=== PATIENT | male | born 1940 | race Caucasian/White ===

== ENCOUNTER → 2016-11-08 | Day surgery (SDC) | payer OTHER, BC ==
--- NOTE | 2016-11-09 15:41 | PATH ---
Surgical Pathology Report Patient Name: ALIZE HARDY [facility]. Rec. #: [id number] /Age/Gender: 1940 (Age: 76) / M Account: [id number] Location: Taken: 11/08/2016 Received: 11/08/2016 Reported: 11/09/2016 Physicians: Missy Israel M.D. Specimen(s) Received RIGHT BREAST RETROAREOLAR REGION CORE BIOPSY Clinical History Rule out intraductal papilloma Final Diagnosis BREAST, RIGHT, RETROAREOLAR REGION, CORE BIOPSY: INTRADUCTAL PAPILLOMA. Electronically Signed Jessica Berrios M.D. Gross Description Received in formalin, labeled right breast retroareolar region are four cores of light stover and yellow stover soft tissue ranging from 1-1.7 cm in length with a diameter up to 0.2 cm. Entirely submitted two cassettes. Time to formalin fixation: 2 minutes Formalin fixation time: approximately 6 hours
== END | disposition home or self-care (01) ==
LOC: FRADUS-SUR 13:42
PROVIDERS: ATTEND Internal Medicine
PROC: 0HBT3ZX Excision of Right Breast, Percutaneous Approach, Diagnostic (ICD-10-PCS; principal; 2016-11-08)
DX: N63 Unspecified lump in breast (principal); D24.1 Benign neoplasm of right breast
CPT/HCPCS: 19083; 87899; 88305-TC; A4648; G0206-TC

== ENCOUNTER 2017-08-02 03:03 | Observation (INO) | payer OTHER, BC ==
[2017-08-02] MEDS ORDERED: ALBUTEROL SO4 2.5/IPRATROPIUM 0.5 INH SOL 3 ML VIAL.NEB. NEB ONE ×3 (03:17→03:31)
--- NOTE | 2017-08-02 03:17 | PDOC ---
History of Present Illness - General Chief Complaint: Chest Pain Stated Complaint: HEART BURN FULLNESS TOP CHEST AND UPPER ABDOMEN Time Seen by Provider: 08/02/17 03:11 History Source: Patient Exam Limitations: No Limitations - History of Present Illness Initial Comments: 08/02/17 03:19 This is a 76-year-old male with a history of NH 1 in the past and 3 stents placed. Patient also has history of hypertension, high cholesterol. Patient comes in this morning complaining of difficulty breathing. Patient said every time he tries to lay down he is unable to breathe. Patient said he has history of similar symptoms in the past when he had an NH. Patient said however this time he doesn't have any chest discomforts just shortness of breath. Patient did not use his medications that he has for COPD. Patient took some antacids and came in for evaluation. PAST MEDICAL HISTORY: no significant history PAST SURGICAL HISTORY: no significant history FAMILY HISTORY: no pertinant history SOCIAL HISTORY: Pt lives with family and is retired MEDICATIONS: reviewed ALLERGIES: As per nursing notes Review of Systems General: No fevers or chills, no weakness, no weight loss HEENT: No change in vision. No sore throat,. No ear pain CardioVascular: no chest pain, + shortness of breath Respiratory:No cough, + wheezing. Gastrointestinal: no nausea, vomitting, diarrhea or constipation, No rectal bleeding Genitourinary: No dysuria, hematuria, or frequency Musculoskeletal: No joint or muscle pain or swelling Neurologic: No headache, vertigo, dizziness or loss of consciousness Psychiatric: nor depression Skin: No rashes or easy bruising Endocrine: no increased thirst or abnormal weight change Allergic: no skin or latex allergy All other systems reviewed and normal Exam: General: Well-nourished well-developed individual, no acute distress HEENT: Throat: Normal, tonsils normal, no erythema or exudate Neck: Supple, no meningeal signs, no lymphadenopathy Eyes::Pupils equal reactive and round, extraocular motion intact Chest: Nontender to palpation Cardiac: S1-S2 normal, regular rate and rhythm, no murmurs rubs or gallops Respiratory decreased breath sounds bilateral with diffuse wheezing in all edward wheezing is expiratory Abdomen: Soft, nondistended, normal bowel sounds, nontender to palpation diffusely Extremities: Warm, dry, no cyanosis, clubbing, or edema Skin: No rashes Neuro: Alert and oriented x3, CN II - XII intact, nonfocal exam with normal strength, normal sensation, normal reflexes, normal gait, Psych: Normal mood and affect Medical decision making This is a 76-year-old male who comes in complaining of shortness of breath. Patient has an extensive cardiac history. Differential diagnoses includes cardiac causes, COPD exacerbation, upper respiratory/viral illness, We'll obtain labs: CBC, cough, cardiac enzymes Ordered an EKG, chest x-ray We'll give patient a DuoNeb's 2 and some prednisone We'll reassess and evaluated results of workup. EKG done at 3:06 AM shows normal sinus rhythm at a rate of 67 and normal intervals no acute ST-T wave changes normal EKG Chest x-ray chronic changes, COPD, no acute pathology when compared with prior chest x-rays no significant change 08/02/17 05:05 Reassessment: Post 2 albuterol nebs and prednisone Patient feels better his lungs are now clear there is no further wheezing Patient however will need an observation telemetry admission as his heart scores 4, to rule him out for cardiac causes. 08/02/17 05:36 Patient remains clinically stable, heart rate and blood pressure stable, Patient's lab work is unremarkable however his troponin is within normal range but 0.02 Patient denies any chest pain or shortness of breath at this time. Patient will be placed in an observation telemetry bed for rule out NH and further treatment and management of his COPD exacerbation 08/02/17 05:37 Signout given to the admitting hospitalist, who accepts the patient. Discussed plan with the patient, Patient aware of the plan and agree. Patient is clinically unchanged and stable. Past History - Past Medical History Allergies/Adverse Reactions: Allergies Allergy/AdvReac Type Severity Reaction Status Date / Time No Known Drug Allergies Allergy Verified 08/02/17 03:05 Home Medications: Ambulatory Orders Aspirin 81 mg PO DAILY 05/22/12 Tamsulosin HCl 0.4 mg PO DAILY 07/03/12 Risperidone [Risperdal] 0.25 mg PO DAILY 10/15/14 Anemia: No Asthma: No Cancer: No Cardiac Disorders: Yes (CAD NH) CVA: No COPD: No CHF: No Dementia: No Diabetes: No GI Disorders: Yes (COLONIC POLYPS) Disorders: Yes (BPH) HTN: Yes Hypercholesterolemia: Yes Liver Disease: No Seizures: No Thyroid Disease: No - Surgical History Abdominal Surgery: No Appendectomy: No Cardiac Surgery: Yes (CARDIAC STENTS) Cholecystectomy: No Lung Surgery: No Neurologic Surgery: No Orthopedic Surgery: No - Suicide/Smoking/Psychosocial Hx Smoking History: Current every day smoker Have you smoked in the past 12 months: Yes Number of Cigarettes Smoked Daily: 10 'Breaking Loose' booklet given: 10/15/14 Hx Alcohol Use: No Drug/Substance Use Hx: No Substance Use Type: None Hx Substance Use Treatment: No Cardiac Specific PMH - Complaint Specific PMHX Pacemaker: No *Physical Exam - Vital Signs Last Vital Signs Temp Pulse Resp BP Pulse Ox 98.3 F 71 19 168/78 96 08/02/17 03:05 08/02/17 05:10 08/02/17 05:10 08/02/17 05:10 08/02/17 05:10 Heart Score/ECG Review - History History: Slightly suspicious - Electrocardiogram EKG: Normal - Age Age: >/= 65 - Risk Factors Risk Factors Heart Score: Yes Hx Hypercholesterolemia, Yes Hx Hypertension, Yes Smoking History, Yes Positive family hx of cardiac disease, Yes Hx Obesity Based on the list above the patient has:: >/=3 risk factors or Hx atherosclerotic disease - Troponin Troponin: </= normal limit - Score Heart Score - Total: 4 ED Treatment Course - LABORATORY CBC & Chemistry Diagram: 08/02/17 03:29 08/02/17 03:29 - ADDITIONAL ORDERS Additional order review: Laboratory Results 08/02/17 08/02/17 08/02/17 03:29 03:29 03:29 PT with INR 10.70 INR 0.95 PTT (Actin FS) 34.1 Sodium 138 Potassium 3.9 Chloride 101 Carbon Dioxide 27 Anion Gap 10 BUN 15 Creatinine 0.7 Creat Clearance w eGFR > 60 Random Glucose 133 H Calcium 7.9 L Total Bilirubin 0.3 AST 52 H ALT 74 Alkaline Phosphatase 80 Creatine Kinase 117 Troponin I < 0.02 Total Protein 6.6 Albumin 3.5 08/02/17 03:29 RBC 4.84 MCV 96.3 H MCHC 34.0 RDW 13.2 MPV 7.8 Neutrophils % 61.0 Lymphocytes % 24.9 Monocytes % 9.5 Eosinophils % 3.9 Basophils % 0.7 - RADIOLOGY Radiology Studies Ordered: Category Date Time Status CHEST X-RAY PORTABLE* [RAD] Stat Radiology 08/02/17 03:16 Taken - Medications Given in the ED: ED Medications Discontinued Medications Generic Name Dose Route Start Last Admin Trade Name Paolo PRN Reason Stop Dose Admin Albuterol/Ipratropium 1 amp 08/02/17 03:17 08/02/17 03:34 Duoneb - NEB 08/02/17 03:18 1 amp ONCE ONE Administration Albuterol/Ipratropium 1 amp 08/02/17 03:19 08/02/17 04:01 Duoneb - NEB 08/02/17 03:20 1 amp ONCE ONE Administration Prednisone 60 mg 08/02/17 03:18 08/02/17 03:34 Deltasone - PO 08/02/17 03:19 60 mg ONCE ONE Administration *DC/Admit/Observation/Transfer Diagnosis at time of Disposition: COPD exacerbation Chest pain Qualifiers: Chest pain type: unspecified Qualified Code(s): R07.9 - Chest pain, unspecified - Discharge Dispostion Condition at time of disposition: Fair Admit: Yes - Referrals - Patient Instructions - Post Discharge Activity
[2017-08-02] MEDS ORDERED: predniSONE 20 MG TABLET (UD) PO ONE (03:18)
[2017-08-02] MEDS ORDERED: predniSONE 20 MG TABLET (UD) ONE (03:31)
[2017-08-02 04:07] LABS: BASO % 0.7 % (0-2.0); EOS % 3.9 % (0-4.5); HEMATOCRIT 46.6 % (35.4-49); HEMOGLOBIN 15.9 GM/dL (11.7-16.9); LYMPH % 24.9 % (8-40); MCH 32.7 pg (25.7-33.7); MEAN CELL VOLUME 96.3 fl (80-96); MEAN PLT VOLUME 7.8 fl (7.5-11.1); MONO % 9.5 % (3.8-10.2); PLATELET COUNT 227 K/MM3 (134-434); RBC 4.84 M/mm3 (4.00-5.60); RDW 13.2 % (11.9-15.9); WHITE BLOOD COUNT 9.1 K/mm3 (4.0-10.0)
[2017-08-02 05:17] LABS: INR 0.95 (0.82-1.09); PROTHROMBIN TIME (PATIENT) 10.7 SEC (9.98-11.88)
[2017-08-02 05:20] LABS: ACTIVATED PTT 34.1 SECONDS (26.9-34.4)
[2017-08-02 05:23] LABS: ALBUMIN 3.5 g/dl (3.4-5.0); ANION GAP 10 (8-16); BILIRUBIN,TOTAL 0.3 mg/dL (0.2-1.0); BLOOD UREA NITROGEN 15 mg/dL (7-18); CALCIUM 7.9 mg/dL (8.5-10.1); CHLORIDE 101 mmol/L (98-107); CO2 27 mmol/L (21-32); CREATININE 0.7 mg/dL (0.7-1.3); GLUCOSE,RANDOM 133 mg/dL (74-106); SODIUM 138 mmol/L (136-145)
[2017-08-02 05:25] LABS: ALK PHOS 80 U/L (45-117); TOT PROT 6.6 g/dl (6.4-8.2)
[2017-08-02 05:27] LABS: POTASSIUM 3.9 mmol/L (3.5-5.1); SGOT/AST 52 U/L (15-37); SGPT/ALT 74 U/L (12-78)
[2017-08-02] MEDS ORDERED: ALBUTEROL SO4 0.083% IH SOL 2.5 MG/3 ML VIAL.NEB. NEB PRN (05:40)
[2017-08-02] MEDS ORDERED: IPRATROPIUM BR 0.02% 0.5 MG/2.5 ML VIAL.NEB. NEB PRN (05:40)
[2017-08-02] MEDS ORDERED: ASPIRIN 81 MG CHEWABLE TABLETS PO ONE (05:45)
[2017-08-02] MEDS ORDERED: ASPIRIN 81 MG CHEWABLE TABLETS ONE (06:25)
[2017-08-02] MEDS: ALBUTEROL SO4 2.5/IPRATROPIUM 0.5 INH SOL 3 ML VIAL.NEB. NEB SCH ×3 (08:19→22:05)
--- NOTE | 2017-08-02 08:25 | HP ---
CHIEF COMPLAINT: shortness of breath on exertion and chest pressure PCP: Dr Mckeon HISTORY OF PRESENT ILLNESS: Patient is a 76 y/o male with past medical history of UT (stent x 3, 15 years ago), copd, HTN, CAD, BPH and HLD. Patient reports shortness of breath since 0200 on this date. He reports attempting to ambulate independently at home, he developed worsening of dyspnea on exertion and was brought to the emergency department by his for further evaluation. Patient reports intermittent episodes of substernal non radiating chest pressure within the past month that resolves at rest. 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 Smoking: tobacco smoker 1 pack daily Alcohol: 4-6 beers daily Drugs: none Family History: Allergies No Known Drug Allergies Allergy (Verified 08/02/17 03:05) HOME MEDICATIONS: Home Medications Medication Instructions Recorded Aspirin 81 mg PO DAILY 05/22/12 Risperidone [Risperdal] 0.25 mg PO DAILY 10/15/14 REVIEW OF SYSTEMS CONSTITUTIONAL: Absent: fever, chills, diaphoresis, generalized weakness, malaise, loss of appetite, weight change HEENT: Absent: rhinorrhea, nasal congestion, throat pain, throat swelling, difficulty swallowing, mouth swelling, ear pain, eye pain, visual changes CARDIOVASCULAR: Present: chest pressure Absent: syncope, palpitations, irregular heart rate, lightheadedness, peripheral edema RESPIRATORY: Present: shortness of breath, dyspnea with exertion Absent: cough, orthopnea, wheezing, stridor, hemoptysis GASTROINTESTINAL: Absent: abdominal pain, abdominal distension, nausea, vomiting, diarrhea, constipation, melena, hematochezia GENITOURINARY: Absent: dysuria, frequency, urgency, hesitancy, hematuria, flank pain, genital pain MUSCULOSKELETAL: Absent: myalgia, arthralgia, joint swelling, back pain, neck pain SKIN: Absent: rash, itching, pallor HEMATOLOGIC/IMMUNOLOGIC: Absent: easy bleeding, easy bruising, lymphadenopathy, frequent infections ENDOCRINE: Absent: unexplained weight gain, unexplained weight loss, heat intolerance, cold intolerance NEUROLOGIC: Absent: headache, focal weakness or paresthesias, dizziness, unsteady gait, seizure, mental status changes, bladder or bowel incontinence PSYCHIATRIC: Absent: anxiety, depression, suicidal or homicidal ideation, hallucinations. PHYSICAL EXAMINATION Vital Signs - 24 hr 08/02/17 08/02/17 03:05 05:10 Temperature 98.3 F Pulse Rate 66 Pulse Rate [ 71 Right Radial] Respiratory 20 19 Rate Blood Pressure 164/82 Blood Pressure 168/78 [Left Arm] O2 Sat by Pulse 97 96 Oximetry (%) GENERAL: Awake, alert, and fully oriented, in no acute distress. HEAD: Normal with no signs of trauma. EYES: Pupils equal, round and reactive to light, extraocular movements intact, sclera anicteric, conjunctiva clear. No lid lag. EARS, NOSE, THROAT: Ears normal, nares patent, oropharynx clear without exudates. Moist mucous membranes. NECK: Normal range of motion, supple without lymphadenopathy, JVD, or masses. LUNGS: Breath sounds equal, clear to auscultation bilaterally. No wheezes, and no crackles. No accessory muscle use. HEART: Regular rate and rhythm, normal S1 and S2, 3/6 systolic murmur, rub or gallop. ABDOMEN: Soft, nontender, not distended, normoactive bowel sounds, no guarding, no rebound, no masses. No hepatomegaly or splenomegaly. MUSCULOSKELETAL: Normal range of motion at all joints. No bony deformities or tenderness. No CVA tenderness. UPPER EXTREMITIES: 2+ pulses, warm, well-perfused. No cyanosis. No clubbing. No peripheral edema. LOWER EXTREMITIES: 2+ pulses, warm, well-perfused. No calf tenderness. No peripheral edema. NEUROLOGICAL: Cranial nerves II-XII intact. Normal speech. Normal gait. PSYCHIATRIC: Cooperative. Good eye contact. Appropriate mood and affect. SKIN: Warm, dry, normal turgor, no rashes or lesions noted, normal capillary refill. Laboratory Results - last 24 hr 08/02/17 08/02/17 08/02/17 03:29 03:29 03:29 WBC 9.1 RBC 4.84 Hgb 15.9 Hct 46.6 MCV 96.3 H MCH 32.7 MCHC 34.0 RDW 13.2 Plt Count 227 MPV 7.8 Neutrophils % 61.0 Lymphocytes % 24.9 Monocytes % 9.5 Eosinophils % 3.9 Basophils % 0.7 PT with INR INR PTT (Actin FS) Sodium 138 Potassium 3.9 Chloride 101 Carbon Dioxide 27 Anion Gap 10 BUN 15 Creatinine 0.7 Creat Clearance w eGFR > 60 Random Glucose 133 H Calcium 7.9 L Total Bilirubin 0.3 AST 52 H ALT 74 Alkaline Phosphatase 80 Creatine Kinase 117 Troponin I < 0.02 Total Protein 6.6 Albumin 3.5 08/02/17 03:29 WBC RBC Hgb Hct MCV MCH MCHC RDW Plt Count MPV Neutrophils % Lymphocytes % Monocytes % Eosinophils % Basophils % PT with INR 10.70 INR 0.95 PTT (Actin FS) 34.1 Sodium Potassium Chloride Carbon Dioxide Anion Gap BUN Creatinine Creat Clearance w eGFR Random Glucose Calcium Total Bilirubin AST ALT Alkaline Phosphatase Creatine Kinase Troponin I Total Protein Albumin ASSESSMENT/PLAN: F/E/N - low sodium/cholesterol diet ppx - oob - scd dispo: pt requires observation telemetry full code Problem List - Problem (1) Coronary artery disease Assessment/Plan: - hx of UT 15 years ago, stent x 3 at [facility] in 2002, patient has followed up with hospital insurance representative Dr Dumont, however, Dr Dumont has retired and patient has not been evaulated by a hospital insurance representative in several years - fasting lipid profile ordered - continue ASA and crestor - appreciate cardiology input (Gitig) Code(s): I25.10 - ATHSCL HEART DISEASE OF [place] CORONARY ARTERY W/O ANG PCTRS (2) Hypertension Assessment/Plan: - continue atenolol and ramipril, B/P above goal, increase rampiril to 5mg daily - stat echo ordered Code(s): I10 - ESSENTIAL (PRIMARY) HYPERTENSION (3) Hyperlipidemia Assessment/Plan: - pending lipid profile, continue statin Code(s): E78.5 - HYPERLIPIDEMIA, UNSPECIFIED (4) COPD exacerbation Assessment/Plan: - active tobacco smoker, ct of chest echo ordered, start solumedorol 40mg TID with taper as appropriate - start symbicort continue combivent nebulizer - peak flow Code(s): J44.1 - CHRONIC OBSTRUCTIVE PULMONARY DISEASE W (ACUTE) EXACERBATION (5) BPH (benign prostatic hyperplasia) Assessment/Plan: - continue proscar home dose Code(s): N40.0 - BENIGN PROSTATIC HYPERPLASIA WITHOUT LOWER URINRY TRACT SYMP (6) Alcohol abuse Assessment/Plan: patient reports drinking 5-6 beers daily, observe for signs and symptoms of alcohol withdrawl. Code(s): F10.10 - ALCOHOL ABUSE, UNCOMPLICATED Visit type - Emergency Visit Emergency Visit: Yes ED Registration Date: 08/02/17 Care time: The patient presented to the Emergency Department on the above date and was hospitalized for further evaluation of their emergent condition. - New Patient This patient is new to me today: Yes Date on this admission: 08/03/17 - Critical Care Critical Care patient: No
[2017-08-02 08:36] VITALS: BMI 31.1
[2017-08-02] MEDS: ASPIRIN 81 MG CHEWABLE TABLETS PO SCH (09:42)
[2017-08-02] MEDS: PARoxetine HCL 20 MG TABLET (FP) PO SCH (09:43)
[2017-08-02] MEDS: risperiDONE 0.25 MG TABLET (FP) PO SCH (09:43)
[2017-08-02] MEDS: FINASTERIDE 5 MG TABLET (FP) PO SCH (09:43)
[2017-08-02] MEDS ORDERED: ATENOLOL 50 MG TABLET (FP) PO SCH (10:00)
[2017-08-02] MEDS ORDERED: RAMIPRIL 2.5 MG CAPSULE (FP) PO SCH (10:00)
[2017-08-02] MEDS: methylPREDNISolone NA SUCC 40 MG/1 ML VIAL IVPUSH SCH ×2 (10:20→18:05)
[2017-08-02 10:51] LABS: CHOLESTEROL 218 mg/dl; HDL CHOLESTEROL 35 mg/dl (29-89)
[2017-08-02] MEDS: BUDESONIDE/FORMETEROL FUMARATE 80/4.5 mcg INHALER IH SCH ×2 (11:05→22:05)
[2017-08-02] MEDS: NICOTINE 14 MG/24 HOURS TOPICAL PATCH TD SCH (11:06)
[2017-08-02] MEDS: PANTOPRAZOLE 40 MG TABLET (FP) PO SCH (11:06)
[2017-08-02 11:44] LABS: LDL CHOLESTEROL (ONLY DFH) 73 mg/dl; TRIGLYCERIDES 548 mg/dl (35-160)
[2017-08-02] MEDS ORDERED: RAMIPRIL 2.5 MG CAPSULE (FP) PO ONE (15:30)
--- NOTE | 2017-08-02 16:54 | EKG ---
Test Reason : Blood Pressure : / mmHG Vent. Rate : 067 BPM Atrial Rate : 067 BPM P-R Int : 142 ms QRS Dur : 078 ms QT Int : 406 ms P-R-T Axes : 053 049 064 degrees QTc Int : 429 ms NORMAL SINUS RHYTHM NO PREVIOUS ECGS AVAILABLE Confirmed by MD SOLANO MARJORY ([id number]) on 08/02/2017 4:54:06 PM Referred By: MD CARDENAS Confirmed By:JANET SOLANO MD
--- NOTE | 2017-08-02 17:35 | CON.CARD ---
Cardiology Consult (text) - Consultation Consultation Note: CC: SOB 76 yo smoker with pmhx of CAD s/p remote NSTEMI/PCI x 3 (15 years ago), htn, hl/ hypertriglyceridemia, etoh abuse, copd, bph who p/w sob. prior anginal sx's were dizziness with exertion. States slowly progressive roa walking uphill over the past year. Recently with increased fatigue over the past few weeks. On the day of presentation had drank heavily in the afternoon and smoked october cigarettes. After dinner when he went to bed, he had acute worsening of sob/possibly orthopnea. no pnd, le edema, palps, dizziness, bleeding transient neurologic sx's. + chronic cough. no f/c/s, n/v/d, abdomina pain/distension. congestion, rash, h /a. states improvement in sob after receiving duonebs and steroids in er. Ambulatory Orders Aspirin 81 mg PO DAILY 05/22/12 Risperidone [Risperdal] 0.25 mg PO DAILY 10/15/14 Per patient, also on atenolol, ramipril and crestor 40 mg/day. Current Medications Albuterol Sulfate (Ventolin 0.083% Nebulizer Soln -) 1 amp NEB Q4H PRN PRN Reason: SHORT OF BREATH/WHEEZING Albuterol/Ipratropium (Duoneb -) 1 amp NEB RTID [facility] Last Admin: 08/02/17 13:43 Dose: 1 amp Aspirin (Asa -) 81 mg PO DAILY [facility] Last Admin: 08/02/17 09:42 Dose: 81 mg Atenolol (Tenormin -) 50 mg PO DAILY [facility] Last Admin: 08/02/17 09:43 Dose: 50 mg Budesonide/Formoterol Fumarate (Symbicort 80/4.5mcg -) 2 puff IH BID [facility] Last Admin: 08/02/17 11:05 Dose: 2 puff Finasteride (Proscar -) 5 mg PO DAILY [facility] Last Admin: 08/02/17 09:43 Dose: 5 mg Methylprednisolone Sodium Succinate (Solu-Medrol -) 40 mg IVPUSH Q8H-IV [facility] Last Admin: 08/02/17 10:20 Dose: 40 mg Nicotine (Nicoderm Patch -) 14 mg TD DAILY [facility] Last Admin: 08/02/17 11:06 Dose: 14 mg Pantoprazole Sodium (Protonix -) 40 mg PO DAILY [facility] Last Admin: 08/02/17 11:06 Dose: 40 mg Paroxetine HCl (Paxil -) 20 mg PO DAILY [facility] Last Admin: 08/02/17 09:43 Dose: 20 mg Ramipril (Altace -) 5 mg PO DAILY [facility] Risperidone (Risperdal -) 0.25 mg PO DAILY [facility] Last Admin: 08/02/17 09:43 Dose: 0.25 mg Rosuvastatin Calcium (Crestor -) 40 mg PO [facility] Vital Signs - 24 hr 08/02/17 08/02/17 08/02/17 03:05 05:10 08:28 Temperature 98.3 F 98.7 F Pulse Rate 66 75 Pulse Rate [ 71 Right Radial] Respiratory 20 19 19 Rate Blood Pressure 164/82 157/71 Blood Pressure 168/78 [Left Arm] O2 Sat by Pulse 97 96 95 Oximetry (%) 08/02/17 13:43 Temperature 97.7 F Pulse Rate 84 Pulse Rate [ Right Radial] Respiratory 18 Rate Blood Pressure 159/66 Blood Pressure [Left Arm] O2 Sat by Pulse Oximetry (%) Intake & Output 07/31/17 08/01/17 08/02/17 08/03/17 07:59 07:59 07:59 07:59 Intake Total 850 Balance 850 Weight 215 lb 217 lb nad, calm jvd flat, neck supple ctab, nl effort rrr nl s1, s2 2/6 soft sys murmur at apex. ND PMI + bs soft nt nd obese. no hsm diminshed dp/pt no carotid bruits no le e/c/c aaox3 no jaundice, diaphoresis CBC, BMP 08/02/17 03:29 08/02/17 03:29 Laboratory Tests 08/19/16 08/02/17 08/02/17 08:15 03:29 03:29 Total Bilirubin 0.3 AST 52 H ALT 74 Alkaline Phosphatase 80 Creatine Kinase 117 Troponin I < 0.02 Albumin 3.5 Triglycerides Cholesterol Total LDL Cholesterol HDL Cholesterol TSH 2.42 D 08/02/17 08/02/17 09:00 09:00 Total Bilirubin AST ALT Alkaline Phosphatase Creatine Kinase Troponin I < 0.03 Albumin Triglycerides 548 H Cholesterol 218 Total LDL Cholesterol 73 HDL Cholesterol 35 TSH ekg: sr, no ischemic changes tele: sr chest ct: mild interstitial lung disease, no chf. 76 yo smoker with pmhx of CAD s/p remote NSTEMI/PCI x 3 (15 years ago), htn, hl/ hypertriglyceridemia, etoh abuse, copd, bph who p/w sob. sob - mgm't of component of copd per pmd. - no signs of volume overload at this time. 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 CE' s neg x 2. EKG without ischemic changes. Echo pending. Would con't mathew and plan for stress test in the morning. - sob currently improved, monitor with adjustment of bb as mentioned. - con't home statin, adding lovaza. con't asa hypertriglyceridemia - would switch from atenolol to coreg which will not exacerbate hypertriglyceridemia. con't statin. Will add lovaza. - etoh cessation counseling htn - suboptimal control. - switching to carvedilol as mentioned (monitor for need to adjust dose). Ramipril increased to 5 mg/day etoh - counseled on cessation. + tobacco/copd - tobacco cessation counseling/mgm't of copd/possible acute exacerbation per pmd
[2017-08-02] MEDS ORDERED: MAGNESIUM SULF 50% (8.12 MEQ/2 ML-1 GM VIAL) IVPB ONE (18:00)
[2017-08-02] MEDS ORDERED: ROSUVASTATIN CA 40 MG TABLET PO SCH (22:00)
[2017-08-02] MEDS ORDERED: PT OWN MED DRAWER 7, Y5N ONE (22:04)
[2017-08-02] MEDS: OMEGA-3 ACID ETHYL ESTERS (FATTY-ACIDS) 1 GM CAPSULE (FP) PO SCH (22:06)
[2017-08-03] MEDS: methylPREDNISolone NA SUCC 40 MG/1 ML VIAL IVPUSH SCH ×3 (01:26→17:54)
[2017-08-03 08:31] LABS: ALBUMIN 3.5 g/dl (3.5-5.0); ALK PHOS 56 U/L (32-92); ANION GAP 8 (8-16); BILIRUBIN,TOTAL 0.7 mg/dl (0.2-1.0); BLOOD UREA NITROGEN 14 mg/dl (7-18); CALCIUM 8.4 mg/dl (8.4-10.2); CHLORIDE 101 mmol/L (98-107); CO2 26 mmol/L (22-28); CREATININE 0.8 mg/dl (0.6-1.3); GLUCOSE,RANDOM 175 mg/dl (74-106); MAGNESIUM 2.2 mg/dL (1.8-2.4); POTASSIUM 4.4 mmol/L (3.5-5.1); SGOT/AST 48 U/L (10-42); SGPT/ALT 54 U/L (10-40); SODIUM 135 mmol/L (136-145); TOT PROT 6.3 g/dl (6.4-8.3)
[2017-08-03] MEDS: ALBUTEROL SO4 2.5/IPRATROPIUM 0.5 INH SOL 3 ML VIAL.NEB. NEB SCH ×2 (08:45→14:20)
[2017-08-03] MEDS ORDERED: RAMIPRIL 5 MG CAPSULE (FP) PO SCH (10:00)
[2017-08-03] MEDS ORDERED: REGADENOSON 0.4 MG/5 ML PRE-FILLED SYRINGE IVPUSH ONE ×2 (10:30→13:07)
--- NOTE | 2017-08-03 11:43 | PN ---
Progress Note (short form) - Note Progress Note: s: feeling well, no sob cp palps dizzy, asking to go home o: Vital Signs Period Temp Pulse Resp BP Sys/[place]ake Pulse Ox Last 24 Hr 98.0 F-98.3 F 80-85 18-20 133-148/58-66 95-98 nad, calm jvd flat, neck supple ctab, nl effort rrr nl s1, s2 2/6 soft sys murmur at apex. + bs soft nt nd obese. no le e/c/c aaox3 no jaundice, diaphoresis Current Medications Generic Name Dose Route Start Last Admin Trade Name Freq PRN Reason Stop Dose Admin Albuterol Sulfate 1 amp 08/02/17 05:40 Ventolin 0.083% Nebulizer Soln - NEB Q4H PRN SHORT OF BREATH/WHEEZING Albuterol/Ipratropium 1 amp 08/02/17 08:00 08/03/17 14:20 Duoneb - NEB Not Given RTID [facility]ENN[facility]ER Aspirin 81 mg 08/02/17 10:00 08/02/17 09:42 Asa - PO 81 mg DAILY [facility] Administration Budesonide/Formoterol Fumarate 2 puff 08/02/17 11:00 08/02/17 22:05 Symbicort 80/4.5mcg - IH 2 puff BID [facility]ER Administration Carvedilol 6.25 mg 08/03/17 14:00 Coreg - PO BID [facility] Finasteride 5 mg 08/02/17 10:00 08/02/17 09:43 Proscar - PO 5 mg DAILY [facility] Administration Methylprednisolone Sodium Succinate 40 mg 08/02/17 10:00 08/03/17 01:26 Solu-Medrol - IVPUSH 40 mg Q8H-IV [facility] Administration Nicotine 14 mg 08/02/17 10:30 08/02/17 11:06 Nicoderm Patch - TD 14 mg DAILY [facility] Administration Lomcd-7-Emve Ethyl Esters 2 gm 08/02/17 22:00 08/02/17 22:06 Lovaza - PO 2 gm BID [facility] Administration Pantoprazole Sodium 40 mg 08/02/17 10:30 08/02/17 11:06 Protonix - PO 40 mg DAILY [facility] Administration Paroxetine HCl 20 mg 08/02/17 10:00 08/02/17 09:43 Paxil - PO 20 mg DAILY [facility] Administration Ramipril 5 mg 08/03/17 10:00 Altace - PO DAILY [facility] Risperidone 0.25 mg 08/02/17 10:00 08/02/17 09:43 Risperdal - PO 0.25 mg DAILY [facility] Administration Rosuvastatin Calcium 40 mg 08/02/17 22:00 08/02/17 22:05 Crestor - PO 40 mg HS [facility] Administration CBC, BMP 08/02/17 03:29 08/03/17 07:45 echo 07/2017: nl lv/rv, no sig valve path, nl rvsp mibi 07/2017: moderate inferior/inferolateral scar with mild luigi-infarct ischemia. nl lvef, inf/inferolat AK. chest ct: mild interstitial lung disease, no chf. a/p: 76 yo smoker with pmhx of CAD s/p remote NSTEMI/PCI x 3 (15 years ago), htn , hl/hypertriglyceridemia, etoh abuse, copd, bph who p/w sob. sob - mgm't of component of copd per pmd. - no signs of volume overload at this time. 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 CE' s neg x 2. EKG without ischemic changes. Echo unremarkable. - ce's negative - mibi today shows inferior scar with mild ischemia, a low risk finding. Would continue with med management. -pt needs cardio f/u as outpt, this was d/w him hypertriglyceridemia - would switch from atenolol to coreg which will not exacerbate hypertriglyceridemia. con't statin. Will add lovaza. - etoh cessation counseling htn -cont current meds etoh - counseled on cessation. + tobacco/copd - tobacco cessation counseling/mgm't of copd/possible acute exacerbation per pmd cardiac rea stable for dc with outpt f/u 2-4 weeks.
[2017-08-03] MEDS ORDERED: CARVEDILOL 6.25 MG TABLET (FP) PO SCH (14:00)
--- NOTE | 2017-08-03 14:06 | PN ---
Physical Exam: SUBJECTIVE: Patient seen and examined, OBJECTIVE: Patient is a 76 y/o male with past medical history of MA (stent x 3, 15 years ago), copd, HTN, CAD, BPH and HLD. patient was admitted from the emergency department for chest pain r/o acs Vital Signs Period Temp Pulse Resp BP Sys/[place] Pulse Ox Last 24 Hr 98.0 F-98.3 F 80-85 18-20 133-148/58-66 95-98 GENERAL: The patient is awake, alert, and fully oriented, in no acute distress. HEAD: Normal with no signs of trauma. EYES: PERRL, extraocular movements intact, sclera anicteric, conjunctiva clear. No ptosis. ENT: Ears normal, nares patent, oropharynx clear without exudates, moist mucous membranes. NECK: Trachea midline, full range of motion, supple. LUNGS: Breath sounds equal, clear to auscultation bilaterally, no wheezes, no crackles, no accessory muscle use. HEART: Regular rate and rhythm, S1, S2 without murmur, rub or gallop. ABDOMEN: Soft, nontender, nondistended, normoactive bowel sounds, no guarding, no rebound, no hepatosplenomegaly, no masses. EXTREMITIES: 2+ pulses, warm, well-perfused, no edema. NEUROLOGICAL: Cranial nerves II through XII grossly intact. Normal speech, gait not observed. PSYCH: Normal mood, normal affect. SKIN: Warm, dry, normal turgor, no rashes or lesions noted Laboratory Results - last 24 hr 08/02/17 08/02/17 08/02/17 16:31 16:31 16:31 Sodium Potassium Chloride Carbon Dioxide Anion Gap BUN Creatinine Creat Clearance w eGFR Random Glucose Calcium Magnesium 1.8 Total Bilirubin AST ALT Alkaline Phosphatase Creatine Kinase 75 Troponin I 0.08 H D Total Protein Albumin 08/02/17 08/03/17 08/03/17 23:30 07:45 07:45 Sodium 135 L Potassium 4.4 Chloride 101 Carbon Dioxide 26 Anion Gap 8 BUN 14 Creatinine 0.8 Creat Clearance w eGFR > 60 Random Glucose 175 H D Calcium 8.4 Magnesium 2.2 D Total Bilirubin 0.7 D AST 48 H D ALT 54 H D Alkaline Phosphatase 56 D Creatine Kinase 77 Troponin I 0.18 H D 0.19 H D Total Protein 6.3 L Albumin 3.5 08/03/17 07:45 Sodium Potassium Chloride Carbon Dioxide Anion Gap BUN Creatinine Creat Clearance w eGFR Random Glucose Calcium Magnesium Total Bilirubin AST ALT Alkaline Phosphatase Creatine Kinase 64 Troponin I Total Protein Albumin Active Medications Generic Name Dose Route Start Last Admin Trade Name Paolo PRN Reason Stop Dose Admin Albuterol Sulfate 1 amp 08/02/17 05:40 Ventolin 0.083% Nebulizer Soln - NEB Q4H PRN SHORT OF BREATH/WHEEZING Albuterol/Ipratropium 1 amp 08/02/17 08:00 08/03/17 08:45 Duoneb - NEB Not Given RTID JENNIFER Aspirin 81 mg 08/02/17 10:00 08/02/17 09:42 Asa - PO 81 mg DAILY JENNIFER Administration Budesonide/Formoterol Fumarate 2 puff 08/02/17 11:00 08/02/17 22:05 Symbicort 80/4.5mcg - IH 2 puff BID JENNIFER Administration Carvedilol 6.25 mg 08/03/17 14:00 Coreg - PO BID JENNIFER Finasteride 5 mg 08/02/17 10:00 08/02/17 09:43 Proscar - PO 5 mg DAILY JENNIFER Administration Methylprednisolone Sodium Succinate 40 mg 08/02/17 10:00 08/03/17 01:26 Solu-Medrol - IVPUSH 40 mg Q8H-IV JENNIFER Administration Nicotine 14 mg 08/02/17 10:30 08/02/17 11:06 Nicoderm Patch - TD 14 mg DAILY JENNIFER Administration Kiqma-5-Fmrr Ethyl Esters 2 gm 08/02/17 22:00 08/02/17 22:06 Lovaza - PO 2 gm BID JENNIFER Administration Pantoprazole Sodium 40 mg 08/02/17 10:30 08/02/17 11:06 Protonix - PO 40 mg DAILY JENNIFER Administration Paroxetine HCl 20 mg 08/02/17 10:00 08/02/17 09:43 Paxil - PO 20 mg DAILY JENNIFER Administration Ramipril 5 mg 08/03/17 10:00 Altace - PO DAILY JENNIFER Risperidone 0.25 mg 08/02/17 10:00 08/02/17 09:43 Risperdal - PO 0.25 mg DAILY JENNIFER Administration Rosuvastatin Calcium 40 mg 08/02/17 22:00 08/02/17 22:05 Crestor - PO 40 mg HS JENNIFER Administration ASSESSMENT/PLAN: 1) cardiovascular coronary artery disease -continue lovaza and crestor - cardiology consulted and following hypertension - continue altace and coreg - b/p at goal - echo 55-60%, grade I diastolic dysfunction 2) pulm copd excerbation - chest ct, no occult malignancy, mild interstial lung disease - continue solumedrol 40mg tid - continue symbicort and combivent nebulizer 3) psych alcholol abuse - drinks 4-6 beers daily, continue to monitor for signs of alcohol withdrawl F/E/N - low sodium/cholesterol diet ppx - oob - scd dispo: pt requires observation telemetry full code Problem List - Problems (1) Coronary artery disease Code(s): I25.10 - ATHSCL HEART DISEASE OF [place] CORONARY ARTERY W/O ANG PCTRS (2) Hypertension Code(s): I10 - ESSENTIAL (PRIMARY) HYPERTENSION (3) Hyperlipidemia Code(s): E78.5 - HYPERLIPIDEMIA, UNSPECIFIED (4) COPD exacerbation Code(s): J44.1 - CHRONIC OBSTRUCTIVE PULMONARY DISEASE W (ACUTE) EXACERBATION (5) BPH (benign prostatic hyperplasia) Code(s): N40.0 - BENIGN PROSTATIC HYPERPLASIA WITHOUT LOWER URINRY TRACT SYMP (6) Alcohol abuse Code(s): F10.10 - ALCOHOL ABUSE, UNCOMPLICATED
[2017-08-03 14:21] LABS: N-TERMINAL BNP 935.6 pg/ml (5-125)
[2017-08-03 15:20] VITALS: BP 145/59; PULSE 80; TEMP 98.2
[2017-08-03] MEDS: PANTOPRAZOLE 40 MG TABLET (FP) PO SCH (15:25)
[2017-08-03] MEDS: FINASTERIDE 5 MG TABLET (FP) PO SCH (15:25)
[2017-08-03] MEDS: PARoxetine HCL 20 MG TABLET (FP) PO SCH (15:25)
[2017-08-03] MEDS: risperiDONE 0.25 MG TABLET (FP) PO SCH (15:25)
[2017-08-03] MEDS: NICOTINE 14 MG/24 HOURS TOPICAL PATCH TD SCH (15:26)
[2017-08-03] MEDS: OMEGA-3 ACID ETHYL ESTERS (FATTY-ACIDS) 1 GM CAPSULE (FP) PO SCH (15:26)
[2017-08-03] MEDS: ASPIRIN 81 MG CHEWABLE TABLETS PO SCH (15:26)
[2017-08-03] MEDS ORDERED: PT OWN MED DRAWER 7, Y5N ONE (15:30)
[2017-08-03] MEDS: BUDESONIDE/FORMETEROL FUMARATE 80/4.5 mcg INHALER IH SCH (15:36)
== END 2017-08-03 20:30 | disposition home or self-care (01) ==
LOC: FER 03:03 → FM/S 06:31
PROVIDERS: ADMIT Internal Medicine; ATTEND Nurse Practitioner Family
PROC: 3E0333Z Introduction of Anti-inflammatory into Peripheral Vein, Percutaneous Approach (ICD-10-PCS; principal; 2017-08-02)
PROC: 3E033GC Introduction of Other Therapeutic Substance into Peripheral Vein, Percutaneous Approach (ICD-10-PCS; 2017-08-02)
PROC: 3E0F7GC Introduction of Other Therapeutic Substance into Respiratory Tract, Via Natural or Artificial Opening (ICD-10-PCS; 2017-08-02)
DX: J44.1 Chronic obstructive pulmonary disease with (acute) exacerbation (principal); R07.9 Chest pain, unspecified; I10 Essential (primary) hypertension; I25.2 Old myocardial infarction; E78.5 Hyperlipidemia, unspecified; N40.0 Benign prostatic hyperplasia without lower urinary tract symptoms; F17.210 Nicotine dependence, cigarettes, uncomplicated; F10.10 Alcohol abuse, uncomplicated; Z95.5 Presence of coronary angioplasty implant and graft; Z79.82 Long term (current) use of aspirin
CPT/HCPCS: 36415; 71045-TC; 71250-TC; 78452-TC; 80053; 80061; 82550; 83735; 83880; 84484; 85025; 85610; 85730; 87804; 93005; 93017; 93306-TC; 94150; 94640; 96374; 96375; 99284-25; A9502; G0378; J2785

== ENCOUNTER 2020-07-20 15:52 | Emergency (ER) | payer OTHER, BC | END 2020-07-20 16:49 | disposition home or self-care (01) | LOC: JVIRT 15:52 | DX: Z11.52 Encounter for screening for COVID-19 (principal) | CPT/HCPCS: G2012-GT ==